=== PATIENT | female | born 1970 ===

== ENCOUNTER → 2021-07-21 | Outpatient (CLI) | payer OTHER ==
[~2021-07-21] MED LIST: MPR22T TP; SULF1TAB38 PO
--- NOTE | 2021-07-21 17:01 | Diagnostic Imaging Report ---
INDICATION: Right breast calcifications. COMPARISON: Correlation is made with mammograms from 06/16/2021 and 06/30/2021. EXAMINATION: Unilateral right 2D and 3D diagnostic mammography was performed. This included magnification CC and ML views as well as conventional 90 degrees lateral views. The current study was also evaluated with a Computer Aided Detection (CAD) system. FINDINGS: There are numerous calcifications in the retroareolar right breast which are punctate and primarily benign-appearing. There are calcifications actually within the nipple, itself, and within the dermis deep to the nipple. No mass is identified. These calcifications are indeterminate. Right axilla is unremarkable. IMPRESSION: Dermal and nipple calcifications, indeterminate. A follow-up in six months could be performed to confirm stability. Consideration could be given to performance of a skin biopsy with surgical consultation. ACR BI-RADS Category 3: Probably benign findings. Result letter will be mailed to the patient. Note: At least 10% of breast cancer is not imaged by mammography. Dictated by: Dictated on workstation # [id number]
== END ==
LOC: RAD 13:45
PROVIDERS: ATTEND Surgery
DX: R92.1 Mammographic calcification found on diagnostic imaging of breast (principal)
CPT/HCPCS: 77065; G0279

== ENCOUNTER → 2021-08-15 | Outpatient (CLI) | payer OTHER ==
[~2021-08-15] MED LIST changes: +GADOBUTROL 15 MMOL/15 ML (GADAVIST) VIAL IV ONE
--- NOTE | 2021-08-19 17:20 | Diagnostic Imaging Report ---
EXAMINATION: MRI BREAST BILAT W W/O CON INDICATION: Right nipple calcifications seen on mammogram. Patient denies any current breast-related symptoms or any family history of breast cancer. TECHNIQUE: Utilizing a 1.5 Krista magnet, the patient was placed in the prone position with a dedicated breast coil in place. Axial STIR, T2 fat sat, T1 and T1 fat-sat images are obtained without contrast. Postcontrast high-resolution dynamic images are also obtained. Pre and post contrasted images are then evaluated with [employer] for evaluation of possible angiogenesis. 6 mL of Gadavist gadolinium contrast material was administered intravenously. COMPARISON: Recent diagnostic mammogram and breast ultrasound exams performed in June,July 2021. FINDINGS: The breasts are composed of heterogeneous fibroglandular tissue. There is mild background parenchymal enhancement, with scattered foci of enhancement in both breasts also felt to be related to background. There is a 7 x 5 mm oval T1/T2 hyperintense mass in the medial aspect of the right nipple. This demonstrates peripheral enhancement on postcontrast imaging. Otherwise, there is no suspicious mass or non-mass enhancement in either breast. There is no axillary or internal mammary adenopathy. IMPRESSION: There is a 7 mm mass in the medial aspect of the right nipple which demonstrates mild peripheral enhancement. This may represent a complicated cyst (proteinaceous/hemorrhagic cyst) with peripheral enhancement related to inflammation in the cyst wall, however, other benign and malignant etiologies are not excluded. Although this may account for the right nipple calcifications seen on mammogram, no definite correlative findings were seen on prior ultrasound exam. A 2nd look (MRI directed) ultrasound of the right nipple is recommended for further evaluation, with use of a standoff pad as indicated. Biopsy of the calcifications is recommended if seen by ultrasound, and if not, surgical consultation and excisional biopsy is recommended to exclude malignancy. There is no MR evidence of malignancy in the left breast and no lymphadenopathy. BI-RADS Category 4: Suspicious RECOMMENDATIONS: Further evaluation of right nipple calcifications with 2nd look ultrasound and biopsy, as detailed above. Dictated by: Dictated on workstation # [id number]
== END ==
LOC: RAD 08-08 14:00
PROVIDERS: ATTEND Surgery
DX: N63.10 Unspecified lump in the right breast, unspecified quadrant (principal)
CPT/HCPCS: 77049

== ENCOUNTER → 2021-11-09 | Outpatient (CLI) | payer OTHER ==
[~2021-11-09] MED LIST changes: -GADOBUTROL 15 MMOL/15 ML (GADAVIST) VIAL IV ONE
--- NOTE | 2021-11-09 17:59 | Diagnostic Imaging Report ---
INDICATION: Right breast calcifications in questionable nodule. COMPARISON: Correlation is made with prior mammograms from June 2021 as well as July 2021 as well as the MRI breast study from 08/15/2021. EXAMINATION: Sonographic interrogation of the right nipple and areola as well as retroareolar tissues was performed. FINDINGS: There appears to be a grouping of calcifications either within or immediately behind the right nipple. This corresponds to a cluster noted mammographically. This could conceivably represent the nodule noted on MRI as well. Tissue sampling would be recommended. Attempt could be made using ultrasound guidance. No other abnormalities are seen. IMPRESSION: There appears to be a cluster of microcalcifications and potential nodule either within or immediately posterior to the right nipple and areolar region. This measures 4 mm x 6 mm x 4 mm. No other abnormalities are see. Tissue sampling is recommended. This may be amenable to ultrasound guidance. ACR BI-RADS Category 4: Suspicious abnormality. Result letter will be mailed to the patient. Note: At least 10% of breast cancer is not imaged by mammography. Dictated by: Dictated on workstation # [id number]
== END ==
LOC: RAD 13:49
PROVIDERS: ATTEND Nurse Practitioner
DX: N63.10 Unspecified lump in the right breast, unspecified quadrant (principal)

== ENCOUNTER → 2022-05-22 | Outpatient (CLI) | payer OTHER ==
[~2022-05-22] VITALS: Ht 152.4 cm; Wt 63.6 kg
[~2022-05-22] MED LIST changes: +LIDOCAINE 1% INJ 30 ML (XYLOCAINE) VIAL INJ ONE
--- NOTE | 2022-05-22 12:18 | Diagnostic Imaging Report ---
INDICATION: Right breast calcifications. Patient status post ultrasound-guided biopsy. Unilateral right 2-D CC and ML mammography was performed after patient underwent ultrasound-guided biopsy. There is a marker clip in the retroareolar right breast. IMPRESSION: Marker clip placement, status post ultrasound-guided biopsy. Dictated by: Dictated on workstation # [id number]
--- NOTE | 2022-05-22 13:21 | Diagnostic Imaging Report ---
INDICATION: Calcifications and nodularity in the retroareolar right breast. Patient presents for ultrasound-guided biopsy. Correlation is made with prior right breast ultrasound from 11/09/2021. Patient brought to the sonographic suite placed on the bed in the supine position. Ultrasound imaging of the right breast was performed to evaluate appropriate entry site. The right breast was then prepped and draped in usual sterile fashion. Small amount 1% lidocaine was utilized for local anesthesia. A total of 3 core biopsies were obtained of the area of nodularity and calcifications in the retroareolar right breast utilizing a 14-gauge Achieve needle. A marker clip was then deployed. Hemostasis was obtained using manual compression. Patient tolerated the procedure well and was sent for a post procedure mammogram in satisfactory condition. IMPRESSION: Successful ultrasound-guided biopsy of the retroareolar right breast, as described. Pathology results are currently pending. Dictated by: Dictated on workstation # [id number]
== END ==
LOC: RAD 10:44
PROVIDERS: ATTEND Nurse Practitioner Family
DX: R92.0 Mammographic microcalcification found on diagnostic imaging of breast (principal)
CPT/HCPCS: 19083; 77065; G0279